=== PATIENT | male | born 1950 | race Two or more races ===

== ENCOUNTER → 2016-03-17 | Outpatient (CLI) | payer BC, OTHER ==
[~2016-03-17] MED LIST: IBUPROPHEN PO; LEVO500T PO; OXYC-208 PO; SENN8.6T7 PO
== END | disposition home or self-care (01) ==
LOC: M WUC 13:14
PROVIDERS: ATTEND Urology
DX: Z85.46 Personal history of malignant neoplasm of prostate (principal)

== ENCOUNTER → 2016-04-26 | Outpatient (REF) | payer OTHER | LOC: M LAB REF 11:16 | PROVIDERS: ATTEND Ophthalmology | DX: L82.1 Other seborrheic keratosis (principal) ==

== ENCOUNTER → 2016-10-06 | Outpatient (CLI) | payer MEDICARE, OTHER | LOC: M WUC 08:17 | PROVIDERS: ATTEND Urology | DX: Z85.46 Personal history of malignant neoplasm of prostate (principal) ==

== ENCOUNTER → 2016-10-15 | Outpatient (CLI) | payer MEDICARE ==
[2016-10-15 09:36] LABS: MEAN CORPUSCULAR VOLUME 84.7 fl (80.0-96.0); RED CELL DISTRIBUTION WIDTH 13.9 % (11.5-14.5)
[2016-10-15 09:40] LABS: MEAN CORPUSCULAR HGB CONC 36.3 g/dl (32.0-36.5)
[2016-10-15 09:49] LABS: ANION GAP 9 MEQ/L (8-16); BLOOD UREA NITROGEN 19 MG/DL (7-18); CALCIUM LEVEL 8.7 MG/DL (8.8-10.2); CARBON DIOXIDE LEVEL 26 MEQ/L (21-32); CHLORIDE LEVEL 108 MEQ/L (98-107); CREATININE FOR GFR 0.89 MG/DL (0.70-1.30); GLOMERULAR FILTRATION RATE > 60.0 (>49); GLUCOSE, FASTING 95 MG/DL (80-110); POTASSIUM SERUM 4.4 MEQ/L (3.5-5.1); SODIUM LEVEL 143 MEQ/L (136-145)
== END ==
LOC: M WUC 08:03
PROVIDERS: ATTEND Urology
DX: Z85.46 Personal history of malignant neoplasm of prostate (principal); Z90.6 Acquired absence of other parts of urinary tract

== ENCOUNTER → 2016-10-21 | Outpatient (CLI) | payer MEDICARE, BC ==
--- NOTE | 2016-10-21 12:59 | REP ---
WHOLE BODY RADIONUCLIDE BONE SCAN: HISTORY: Prostate carcinoma. COMPARISON STUDY: May 03, 2012. TECHNIQUE: 22.0 mCi of technetium 99m MDP is injected and standard whole body bone scan imaging is acquired. SCINTIGRAPHIC FINDINGS: There is a normal distribution of skeletal tracer with uptake in bilateral kidneys and in the urinary bladder. There is no evidence to suggest skeletal metastasis. IMPRESSION: Negative radionuclide bone scan. Signed by aTrik Black MD 10/21/2016 02:39 P
== END ==
LOC: M RAD 09:08
PROVIDERS: ATTEND Urology
DX: Z85.46 Personal history of malignant neoplasm of prostate (principal); Z90.6 Acquired absence of other parts of urinary tract
CPT/HCPCS: 78306; A9503

== ENCOUNTER → 2016-10-22 | Outpatient (CLI) | payer MEDICARE, BC ==
[~2016-10-22] MED LIST changes: +ISOVUE-370 76% 100ML VIAL (Q9967) As Ordered ONE
--- NOTE | 2016-10-22 15:11 | REP ---
Clinical: Prostate cancer for reevaluation. Technique: Axial contrast enhanced images from the thoracic inlet to the upper abdomen using 100 ml Isovue 370 intravenous contrast material with coronal and sagittal re-formations. Comparison: 05/03/2012. Findings: Lung faustin demonstrate chronic age-related changes without acute consolidation, nodule or mass lesion. No pleural effusion/reaction or pneumothorax. Tracheobronchial tree is patent. No axillary, hilar, or mediastinal adenopathy. Mediastinum demonstrates atherosclerotic changes to the coronary arteries without cardiomegaly or pericardial effusion. The thoracic aorta is normal caliber and without aneurysm or dissection. Surrounding musculoskeletal structures demonstrate age-related degenerative change without focal osseous abnormality. Limited upper abdomen demonstrates normal bilateral adrenal glands, cholelithiasis, and 2.1 cm left renal cyst. Impression: 1. Chronic changes as described above without acute mediastinal or pleuroparenchymal process. 2. Upper abdomen demonstrates cholelithiasis and 2.1 cm left renal cyst. 3. The osseous structures demonstrate age-related changes without focal osseous abnormality. Signed by Ed iGbson MD 10/22/2016 03:03 P
--- NOTE | 2016-10-22 19:56 | REP ---
CT abdomen and pelvis without and with IV contrast: History: Prostate carcinoma. Comparison study: June 11, 2014. CT contrast dose: 100 ml of Isovue [address] findings: Preliminary digital ceo ziff davis radiograph demonstrates an unremarkable bowel gas pattern. There are clips in the left upper quadrant. There are multiple calcified gallstones in the gallbladder. No focal hepatic lesion is seen on pre- or postcontrast images. Spleen is unremarkable. No adrenal lesion is observed on either side. The pancreas is unremarkable. There is a cyst in the posterior cortex of the left mid kidney measuring 2.1 cm in greatest diameter. This is unchanged. No retroperitoneal mass or adenopathy is observed. Normal caliber aorta is seen. A normal appendix is noted in the right lower quadrant on pelvic images. There is left colonic diverticulosis without CT evidence of diverticulitis. The prostate is surgically resected. Urinary bladder is unremarkable. No pelvic adenopathy is appreciated. Bone window setting show no lytic or sclerotic bony destructive lesion. On delayed postcontrast images there are tiny cortical cysts in both kidneys in addition to the larger cyst. Impression: No evidence of abdominal or pelvic mass or metastatic disease. Cholelithiasis. Renal cysts. Left colonic diverticulosis. Signed by Tarik Black MD 10/26/2016 08:18 A
== END ==
LOC: M RAD 14:09
PROVIDERS: ATTEND Urology
DX: Z85.46 Personal history of malignant neoplasm of prostate (principal); Z90.6 Acquired absence of other parts of urinary tract; N28.1 Cyst of kidney, acquired; N20.0 Calculus of kidney; K57.30 Diverticulosis of large intestine without perforation or abscess without bleeding
CPT/HCPCS: 71260; 74178; Q9967

== ENCOUNTER → 2017-02-24 | Outpatient (CLI) | payer MEDICARE, OTHER | LOC: M WUC 09:46 | DX: M25.561 Pain in right knee (principal) | CPT/HCPCS: 73564 ==

== ENCOUNTER → 2017-04-20 | Outpatient (CLI) | payer MEDICARE, BC, OTHER ==
[2017-04-20 09:30] LABS: PROSTATIC SPECIFIC AG MONITOR 0.35 NG/ML (< 4.0)
== END ==
LOC: M WUC 08:14
DX: Z85.46 Personal history of malignant neoplasm of prostate (principal)
CPT/HCPCS: 84153

== ENCOUNTER → 2017-10-18 | Outpatient (CLI) | payer MEDICARE, BC, OTHER ==
[2017-10-18 09:32] LABS: PROSTATIC SPECIFIC AG MONITOR 0.52 NG/ML (< 4.0)
== END ==
LOC: M WUC 08:03
DX: Z85.46 Personal history of malignant neoplasm of prostate (principal)
CPT/HCPCS: 84153

== ENCOUNTER → 2017-10-26 | Outpatient (CLI) | payer MEDICARE, BC, OTHER ==
[2017-10-26 14:15] LABS: ALBUMIN 4.1 GM/DL (3.2-5.2); ALBUMIN/GLOBULIN RATIO 1.41 (1.00-1.93); ALKALINE PHOSPHATASE 68 U/L (45-117); ALT/SGPT 23 U/L (12-78); ANION GAP 9 MEQ/L (8-16); AST/SGOT 14 U/L (7-37); BILIRUBIN,TOTAL 3.9 MG/DL (0.2-1.0); BLOOD UREA NITROGEN 16 MG/DL (7-18); CALCIUM LEVEL 8.9 MG/DL (8.8-10.2); CARBON DIOXIDE LEVEL 27 MEQ/L (21-32); CHLORIDE LEVEL 106 MEQ/L (98-107); CREATININE FOR GFR 0.96 MG/DL (0.70-1.30); GLOMERULAR FILTRATION RATE > 60.0 (>49); GLUCOSE, FASTING 97 MG/DL (70-100); POTASSIUM SERUM 4.4 MEQ/L (3.5-5.1); SODIUM LEVEL 142 MEQ/L (136-145)
== END ==
LOC: M SMT 11:09
DX: Z85.46 Personal history of malignant neoplasm of prostate (principal)
CPT/HCPCS: 80053

== ENCOUNTER → 2017-11-03 | Outpatient (CLI) | payer MEDICARE, BC, OTHER ==
[~2017-11-03] MED LIST changes: -IBUPROPHEN PO; +ISOVUE-370 76% 100ML VIAL (Q9967) As Ordered; -ISOVUE-370 76% 100ML VIAL (Q9967) As Ordered ONE; -LEVO500T PO; -OXYC-208 PO; -SENN8.6T7 PO
== END ==
LOC: M RAD 09:10
DX: Z85.46 Personal history of malignant neoplasm of prostate (principal)
CPT/HCPCS: Q9967

== ENCOUNTER → 2018-06-29 | Outpatient (CLI) | payer MEDICARE, BC, OTHER ==
[~2018-06-29] MED LIST changes: +IBUPROPHEN PO; -ISOVUE-370 76% 100ML VIAL (Q9967) As Ordered; +LEVO500T PO; +OXYC-208 PO; +SENN8.6T7 PO
--- NOTE | 2018-06-29 16:01 | REP ---
CT brain without contrast: History: Contusion. Zygomatic fracture. 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 Bony calvarium is intact. There is no evidence of skull fracture. Visualized paranasal sinuses are clear. No intraorbital abnormality is appreciated. There is no evidence of intracranial hemorrhage. No mass, infarct, extra-axial fluid collection or midline shift is seen. There is minimal generalized volume loss. Impression: No skull fracture or intracranial injury. Electronically Signed by Tarik Black MD 06/29/2018 04:08 P
== END ==
LOC: M RAD 15:08
PROVIDERS: ATTEND Physician Assistant
DX: S02.40EA Zygomatic fracture, right side, initial encounter for closed fracture (principal); S00.83XA Contusion of other part of head, initial encounter; X58.XXXA Exposure to other specified factors, initial encounter; Y92.9 Unspecified place or not applicable

== ENCOUNTER → 2018-06-29 | Outpatient (CLI) | payer MEDICARE, BC, OTHER ==
--- NOTE | 2018-06-29 15:25 | REP ---
Facial bone series: Five views. History: Contusion. Findings: Multiple views of the facial bones demonstrate intact orbital and paranasal sinus margins. There is a depressed fracture of the zygomatic arch on the right with overlying soft tissue swelling. The left zygomatic arch appears intact. No mandibular fracture is appreciated. Study is otherwise unremarkable. Impression: Depressed slightly comminuted fracture of the zygomatic arch on the right side with overlying soft tissue swelling. Electronically Signed by Tarik Black MD 06/29/2018 04:07 P
== END ==
LOC: M WUC 14:22
PROVIDERS: ATTEND Physician Assistant
DX: S02.40EA Zygomatic fracture, right side, initial encounter for closed fracture (principal); S00.83XA Contusion of other part of head, initial encounter; X58.XXXA Exposure to other specified factors, initial encounter; Y92.9 Unspecified place or not applicable

== ENCOUNTER → 2018-11-09 | Outpatient (CLI) | payer MEDICARE, BC, OTHER | LOC: M WUC 08:20 | PROVIDERS: ATTEND Urology | DX: Z85.46 Personal history of malignant neoplasm of prostate (principal) ==

== ENCOUNTER → 2018-11-21 | Outpatient (CLI) | payer MEDICARE, BC, OTHER ==
--- NOTE | 2018-11-22 06:29 | RADONC ---
RADIATION ONCOLOGY CONSULTATION NOTE DATE: 11/21/2018 CHART #: [id number] DIAGNOSIS: Prostate cancer. STAGE: Stage II C, [id number], [place] score 8 (4-4), grade group IV, PSA initially 4.7. ECOG PERFORMANCE STATUS: 0. CONSULTATION NOTE: Mr. Rangel is a very pleasant 68-year-old white male with the diagnosis of a stage II C, [id number], poorly differentiated [place] score 8 (4-4), adenocarcinoma of the prostate, grade group IV, with an initial PSA of 4.7 who is presenting to us today status post robotic-assisted laparoscopic radical prostatectomy and bilateral pelvic lymph node dissection for consideration of postoperative radiation therapy following biochemical failure. HISTORY OF PRESENT ILLNESS: The patient was followed closely and a routine PSA was done on 04/05/2012 which was found to be 4.7. On 04/21/2012, the patient underwent prostatic needle biopsy and pathology revealed a [place] score 8 (4-4) adenocarcinoma involving the right side of his prostate. On 05/09/2012, the patient underwent a robotic-assisted laparoscopic radical prostatectomy and bilateral pelvic lymph node dissection. Pathology confirmed a Venkatesh score 8 (4-4) adenocarcinoma involving the right lobe only. There was no extraprostatic capsular extension noted. The seminal vesicles were negative for invasion. All inked surgical margins on the right as well as the left were negative for malignancy. There was noted to be some microscopic foci of perineural invasion noted in the periphery on the right side. A right external iliac node as well as a left external iliac nodes were sampled and were negative for metastatic disease. The patient has been followed since surgery and his PSA has been slowly rising. On 04/20/2017, it had risen to 0.35. On 10/18/2017, the PSA had risen to 0.52 and on 11/09/2018 it appears the PSA has now risen to 0.88. 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 PAST MEDICAL HISTORY: The patient's past medical history is positive for an esophageal repair in 2004. He has been in otherwise good health. ALLERGIES: The patient has NO KNOWN DRUG ALLERGIES. SOCIAL HISTORY: The patient does not smoke cigarettes. He drinks alcohol socially. FAMILY HISTORY: The patient's family history is positive for a father with lung cancer. REVIEW OF SYSTEMS: The patient's review of systems is noncontributory. Denies nausea, vomiting, fevers, chills, night sweats, diplopia, headaches, anxiety or depression, anorexia, weight loss, visual disturbances, chest pain, urinary or bowel difficulties, bone pain, or neurological problems. PHYSICAL EXAMINATION: The patient is a well-developed, well-nourished male in no acute distress. HEENT exam is normocephalic, atraumatic. Extraocular movements are intact. There is no palpable cervical, supraclavicular, infraclavicular, axillary, or inguinal lymphadenopathy present. Lungs are clear to auscultation and percussion. Heart has a regular rate and rhythm. Abdomen is benign with no hepatosplenomegaly, masses, or tenderness. Rectal examination reveals a normal anal sphincter tone. His prostate bed is smooth with no evidence of nodularity. Skeletal examination reveals no tenderness to pressure or percussion of the bony skeleton. Extremities reveal no clubbing, cyanosis, or edema. Neurologic exam is grossly intact, as is the remainder of the physical examination. ASSESSMENT: Clearly, the patient is a candidate for external beam radiation therapy and I have so informed him. I have discussed with the patient in detail the potential benefits as well as possible acute and chronic sequelae of external beam radiation therapy. We have discussed logistics of treatment planning, simulation and subsequent fractionated daily radiation treatments. I have scheduled the patient for the next available simulation slot and radiation treatments will follow. Thank you for allowing us to participate in the care of this very pleasant gentleman. If I could be of any further assistance or provide you any information, please feel free to contact me at anytime. As always warm regards. cc: MD Rei Gibson MD
== END ==
LOC: M ONCR 08:46
PROVIDERS: ATTEND Radiology Radiation Oncology
DX: C61 Malignant neoplasm of prostate (principal)

== ENCOUNTER → 2018-12-21 | Outpatient (RCR) | payer MEDICARE, BC, OTHER ==
[2018-11-23 10:58] LABS: HEMATOCRIT 43.5 % (42.0-52.0); HEMOGLOBIN 15.4 g/dl (13.5-17.5); LYMPH % 23.9 % (24.0-44.0); MEAN CORPUSCULAR HEMOGLOBIN 31.2 pg (27.0-33.0); MEAN CORPUSCULAR HGB CONC 35.4 g/dl (32.0-36.5); NEUTROPHILS # 4.4 10^3/uL (1.8-7.7); NEUTROPHILS % 66.8 % (36.0-66.0); RED BLOOD COUNT 4.94 10^6/uL (4.30-6.10); WHITE BLOOD COUNT 6.6 10^3/uL (4.0-10.0)
--- NOTE | 2018-11-23 20:29 | RADONC ---
RADIATION ONCOLOGY SIMULATION NOTE DATE: 11/23/2018 CHART NUMBER: [id number] Mr. Rangel was taken to the CT scan for CT simulation of his prostate bed field. CT was accomplished without difficulty or discomfort. Radiation treatment planning is underway and radiation treatments will begin subsequently. An immobilization device was created and will be used throughout the course of treatment. It was created without difficulty or discomfort. I was physically present throughout the course of CT simulation.
--- NOTE | 2018-12-04 13:53 | RADONC ---
RADIATION ONCOLOGY PROGRESS NOTE DATE: 12/04/2018 CHART NUMBER: [id number] Mr. Rangel is presently at a dose of 720 cGy to his prostate bed and is tolerating treatments quite well at this point with no complaints related to his radiation therapy. He is having no urinary or bowel difficulties and no bone pain. The patient's review of systems is noncontributory. He denies nausea, vomiting, fevers, chills, night sweats, diplopia, headaches, anxiety or depression, anorexia, weight loss, visual disturbances, chest pain, urinary or bowel difficulties, bone pain, or neurological problems. PHYSICAL EXAMINATION: The patient's skin is in good condition with no evidence of radiation change present. There is no moist or dry desquamation. The remainder of his physical examination remains unchanged. Mr. Rangel is tolerating treatments quite well and radiation will continue as scheduled.
--- NOTE | 2018-12-12 07:04 | RADONC ---
RADIATION ONCOLOGY PROGRESS NOTE DATE: 12/11/2018 CHART #: [id number] DIAGNOSIS: Adenocarcinoma of the prostate. STAGE: II C, [id number]. Mr. Rangel with a diagnosis of adenocarcinoma of the prostate with local regional radiotherapy and his dose to date is 1620 cGy of a proposed 4500 cGy and reevaluate. He appears to be tolerating his radiotherapy reasonably well. REVIEW OF SYSTEMS: Denying any nausea, vomiting, diarrhea, dysuria, hematuria or blood per rectum. His energy level is such that he is able to maintain most day-to-day activities without any alteration of his lifestyle. Skin irritation is denied. The remainder of the review of systems is unchanged. PHYSICAL EXAMINATION There is no evidence of erythema and certainly no focal desquamation. Lymphatics: No palpable peripheral lymphadenopathy is appreciated in the cervical, supraclavicular, axillary or inguinal lymph node chains. Lungs are clear. Heart regular. Abdomen without evidence of hepatomegaly, masses or deep abdominal tenderness. The remainder of the physical examination is unchanged. IMPRESSION: Tolerating therapy well. PLAN: Planned treatments to continue. MTDD
--- NOTE | 2018-12-18 09:45 | RADONC ---
RADIATION ONCOLOGY PROGRESS NOTE DATE: 12/18/2018 CHART #: [id number] Mr. Rangel is presently at a dose of 2520 cGy to his prostate bed and is tolerating treatments quite well at this point with no significant complaints related to his radiation therapy. He is having no urinary problems. He is complaining of hemorrhoidal pain. He is also having some blood with defecation. REVIEW OF SYSTEMS: The patient's review of systems is noncontributory. Denies nausea, vomiting, fevers, chills, night sweats, diplopia, headaches, anxiety or depression, anorexia, weight loss, visual disturbances, chest pain, urinary or bowel difficulties, bone pain, or neurological problems. PHYSICAL EXAMINATION: The patient's skin is in good condition with no evidence of moist or dry desquamation. The remainder of his physical exam remains unchanged. Mr. Rangel is tolerating his treatments fairly well, although he is complaining of hemorrhoid discomfort. We have given him instructions with regards to his perianal care and radiation will continue as scheduled.
== END ==
LOC: M ONCR 11-23 10:10
PROVIDERS: ATTEND Radiology Radiation Oncology
DX: C61 Malignant neoplasm of prostate (principal)

== ENCOUNTER 2019-01-17 08:18 | Outpatient (RCR) | payer MEDICARE, BC, OTHER ==
--- NOTE | 2018-12-25 13:36 | RADONC ---
RADIATION ONCOLOGY DATE OF SERVICE: 12/25/2018 He has a diagnosis of prostate cancer. His chart number is [id number]. Mr. Rangel with the diagnosis of prostate cancer is currently receiving local regional radiotherapy for definitive control. His dose to date is 3600 cGy, and treatments are going relatively well with the exception of rectal irritation and pain secondary to hemorrhoidal irritation. REVIEW OF SYSTEMS: He denies any nausea, vomiting, diarrhea, dysuria, hematuria, or blood per rectum. However, he does have a consistent pain in the rectum secondary to inflamed hemorrhoids. His energy level is such that he is able to maintain most day-to-day activities without any alteration of his lifestyle. Skin irritation is denied. The remainder of the review of systems is noncontributory. EXAMINATION AND FINDINGS: The skin within the irradiated volume shows neither erythema nor desquamation. Lymphatics: No palpable peripheral lymphadenopathy is appreciated. Lungs are clear. The remainder of the physical examination is unchanged. IMPRESSION: Tolerating therapy reasonably well with minor to moderate symptoms secondary to his hemorrhoidal inflammation. PLAN: We will call in a prescription for Anusol-HC suppositories or cream to be applied twice daily. MTDD
--- NOTE | 2019-01-01 10:08 | RADONC ---
RADIATION ONCOLOGY PROGRESS NOTE DATE: 01/01/2019 CHART NUMBER: [id number] Mr. Rangel is presently at a dose of 4320 cGy to his prostate bed and is complaining at this time of severe discomfort and pain secondary to his hemorrhoids. The patient reports that he had been told by his physicians in the past that he needed to address his hemorrhoid problem which has caused him a great deal of difficulty. REVIEW OF SYSTEMS: The patient's review of systems is positive for significant discomfort upon defecation, but is otherwise noncontributory. He denies nausea, vomiting, fevers, chills, night sweats, diplopia, headaches, anxiety or depression, anorexia, weight loss, visual disturbances, chest pain, urinary or bowel difficulties, bone pain or neurological problems. PHYSICAL EXAMINATION: The patient's skin is in good condition with no evidence of radiation change present. There is no moist or dry desquamation. The remainder of his physical exam remains unchanged. I had a very lengthy discussion with this patient with regards to his symptoms. At this point I have recommended that he take at least this week off and let things calm down. He will continue with his Anusol and I have given him some other recommendations. I have requested that he consider taking periodic Fleet enemas which may assist him in allowing him to avoid strain upon defecation. If he did this periodically he may be able to relieve some pressure. Once again in summary, the patient will be on rest for the next week and we will continue to follow him closely. I did discuss the possibility of some pain medication but I think this may only cause increased likelihood of having constipation thereby worsening his overall symptoms. EDUARD
--- NOTE | 2019-01-09 09:11 | RADONC ---
RADIATION ONCOLOGY PROGRESS NOTE DATE: 01/08/2019 CHART NUMBER: [id number] PROGRESS NOTE: Mr Rangel is presently at a dose of 4500 cGy to his prostate bed and is tolerating treatments quite well at this point with no significant difficulties related to his radiation therapy. He has been off secondary to hemorrhoid pain. He reports that his hemorrhoids are now significantly better. He reports that he is having just minimal discomfort and wishes to restart treatment. REVIEW OF SYSTEMS: The patient's review of systems is generally at this time noncontributory. Denies nausea, vomiting, fevers, chills, night sweats, diplopia, headaches, anxiety or depression, anorexia, weight loss, visual disturbances, chest pain, urinary or bowel difficulties, bone pain, or neurological problems. PHYSICAL EXAMINATION: The patient's skin is in good condition with no evidence of radiation change present. There is no moist or dry desquamation. The remainder of his physical exam remains unchanged. Mr. Rangel is tolerating treatments well at this point and radiation will continue as scheduled.
--- NOTE | 2019-01-17 06:54 | RADONC ---
RADIATION ONCOLOGY PROGRESS NOTE DATE: 01/15/2019 CHART NUMBER: [id number] Mr. Rangel is presently a dose of 5400 cGy to his prostate bed and is tolerating treatments quite well at this point with no complaints related to his radiation therapy. He is having no urinary or bowel difficulties and no bone pain. REVIEW OF SYSTEMS: The patient's review of systems is noncontributory. He denies nausea, vomiting, fevers, chills, night sweats, diplopia, headaches, anxiety or depression, anorexia, weight loss, visual disturbances, chest pain, urinary or bowel difficulties, bone pain or neurological problems. PHYSICAL EXAMINATION: The patient's skin is in good condition with no evidence of radiation change present. There is no moist or dry desquamation. The remainder of his physical exam remains unchanged. Mr. Rangel is tolerating treatments quite well and radiation will continue as scheduled.
[~2019-01-17 08:18] MED LIST changes: +ANUS2.5C2 TOP
== END 2019-01-20 ==
LOC: M ONCR 08:18
PROVIDERS: ATTEND Radiology Radiation Oncology
DX: C61 Malignant neoplasm of prostate (principal)

== ENCOUNTER 2019-01-26 08:23 | Outpatient (RCR) | payer MEDICARE, BC, OTHER ==
--- NOTE | 2019-01-23 10:11 | RADONC ---
RADIATION ONCOLOGY CLINIC NOTE DATE OF SERVICE: 01/23/2019 CHART #: [id number] Mr. Rangel is a 68-year-old gentleman who carries a diagnosis of prostate CA. He is receiving radiation therapy to his prostatic bed. Currently, he has received a dose of 6660 cGy in 180 cGy daily fraction fractions. He has no complaints. He denies any nausea, vomiting or bowel problems. Nocturia once. Denies dysuria or hematuria. He said he has some hemorrhoids, which I recommended sitz baths and apply hydrocortisone cream or suppositories. Recommend continuous treatment as scheduled. MTDD
--- NOTE | 2019-01-29 13:15 | RADONC ---
RADIATION ONCOLOGY TREATMENT SUMMARY DATE: 01/29/2019 CHART #: [id number] DIAGNOSIS: Prostate cancer. Stage: II C, [id number], [place] score 8 (4-4) grade group IV, PSA initially 4.7 TREATMENT SUMMARY: Mr. Rangel is a very pleasant 68-year-old white male with the diagnosis of a stage II C, [id number], poorly differentiated, Venkatesh score 8 (4-4) adenocarcinoma of prostate, grade group IV, with an initial PSA of 4.7 who presented to us status post robotic-assisted laparoscopic radical prostatectomy and bilateral pelvic lymph node dissection for consideration of postoperative radiation therapy following biochemical failure. We treated the patient to his prostate bed for a dose of 6660 cGy delivered in 37 fractions of 180 cGy each over 57 elapsed days from 11/29/2018 through 01/26/2019. The patient's prostate bed was treated on a linear accelerator utilizing a 15 MV photon beam via 3-D conformal technique with anterior, posterior, left and right lateral faustin. We initially treated a larger field to a dose of 4500 cGy and subsequently coned down to deliver the remaining 2160 cGy in order to maintain the small bowel and other structures within their tolerance limits. Mr. Rangel tolerated his treatments quite well and was able complete therapy as prescribed. I have scheduled the patient to see me again in 1 month for further followup. He will also continue to be followed by his other physicians as well. cc: MD Rei Gibson MD
== END 2019-02-20 ==
LOC: M ONCR 08:23
PROVIDERS: ATTEND Radiology Radiation Oncology
DX: C61 Malignant neoplasm of prostate (principal)

== ENCOUNTER → 2019-02-13 | Outpatient (CLI) | payer MEDICARE, BC, OTHER ==
[2019-02-17 15:20] LABS: Lyme Disease IgG Ab 18 kDa Ban Present (.); Lyme Disease IgG Ab 23 kDa Ban Absent (.); Lyme Disease IgG Ab 28 kDa Ban Present (.); Lyme Disease IgG Ab 30 kDa Ban Present (.); Lyme Disease IgG Ab 39 kDa Ban Present (.); Lyme Disease IgG Ab 41 kDa Ban Present (.); Lyme Disease IgG Ab 45 kDa Ban Absent (.); Lyme Disease IgG Ab 58 kDa Ban Present (.); Lyme Disease IgG Ab 66 kDa Ban Absent (.); Lyme Disease IgG Ab 93 kDa Ban Present (.); Lyme Disease IgG West Blot Int Positive (.); Lyme Disease IgG/IgM Antibodie 2.78 ISR (0.00-0.90); Lyme Disease IgM Ab 23 kDa Ban Absent (.); Lyme Disease IgM Ab 39 kDa Ban Absent (.); Lyme Disease IgM Ab 41 kDa Ban Absent (.); Lyme Disease IgM Ab Quantitati <0.80 index (0.00-0.79); Lyme Disease IgM West Blot Int Negative (.)
== END ==
LOC: M WUC 10:29
PROVIDERS: ATTEND Internal Medicine
DX: Z11.9 Encounter for screening for infectious and parasitic diseases, unspecified (principal); W57.XXXA Bitten or stung by nonvenomous insect and other nonvenomous arthropods, initial encounter

== ENCOUNTER → 2019-02-23 | Outpatient (CLI) | payer MEDICARE, BC, OTHER | LOC: M WUC 16:10 | PROVIDERS: ATTEND Radiology Radiation Oncology | DX: C61 Malignant neoplasm of prostate (principal) ==

== ENCOUNTER → 2019-02-28 | Outpatient (CLI) | payer MEDICARE, BC, OTHER ==
--- NOTE | 2019-03-01 11:45 | RADONC ---
RADIATION ONCOLOGY FOLLOWUP NOTE DATE: 02/28/2019 CHART #: [id number] DIAGNOSIS: Prostate cancer. STAGE: II C, [id number], Venkatesh score 8 (4-4), grade group 4, PSA initially 4.7. ECOG PERFORMANCE STATUS: 0. FOLLOWUP NOTE: Mr. Rangel is a very pleasant 68-year-old white male with the diagnosis of what appears to be a stage II C, [id number], poorly differentiated Venkatesh score 8 (4-4) adenocarcinoma of the prostate, grade group 4 with an initial PSA of 4.7 who presented to us status post robotic-assisted laparoscopic radical prostatectomy and bilateral pelvic lymph node dissection for consideration of postoperative radiation therapy following biochemical failure. He is now presenting for routine followup visit 1 month post completion of external beam radiation therapy. The patient presents today reporting that generally he is doing quite well. His bowel difficulties have improved significantly and is using ProctoFoam. His side effects peaked 2 weeks after completion of treatment as anticipated and are now resolving. REVIEW OF SYSTEMS: The patient's review of systems is positive for some slight residual discomfort, but is otherwise noncontributory. Denies nausea, vomiting, fevers, chills, night sweats, diplopia, headaches, anxiety or depression, anorexia, weight loss, visual disturbances, chest pain, urinary or bowel difficulties, bone pain, or neurological problems. PHYSICAL EXAMINATION: The patient is a well-developed, well-nourished male in no acute distress. HEENT exam is normocephalic, atraumatic. Extraocular movements are intact. There is no palpable cervical, supraclavicular, infraclavicular, axillary, or inguinal lymphadenopathy present. Lungs are clear to auscultation and percussion. Heart has a regular rate and rhythm. Abdomen is benign with no hepatosplenomegaly, masses, or tenderness. Rectal examination was refused at this point. Skeletal examination reveals no tenderness to pressure or percussion of the bony skeleton. Extremities reveal no clubbing, cyanosis, or edema. Neurologic exam is grossly intact, as is the remainder of the physical examination. ASSESSMENT: The patient is clinically doing quite well at this point. I have scheduled him to see me again in 6 months for further followup. He will also continue to be followed by his other physicians as well. cc: MD Rei Gibson MD
== END ==
LOC: M ONCR 10:28
PROVIDERS: ATTEND Radiology Radiation Oncology
DX: C61 Malignant neoplasm of prostate (principal)

== ENCOUNTER → 2019-05-28 | Outpatient (CLI) | payer MEDICARE, BC, OTHER | LOC: M WUC 10:55 | PROVIDERS: ATTEND Radiology Radiation Oncology | DX: C61 Malignant neoplasm of prostate (principal) ==

== ENCOUNTER → 2019-06-06 | Outpatient (CLI) | payer MEDICARE, BC, OTHER ==
--- NOTE | 2019-06-06 09:41 | RADONC ---
RADIATION ONCOLOGY TELEPHONE FOLLOWUP NOTE DATE: 06/06/2019 This is a telemedicine visit. The patient was informed of the risks including security breech, technological failure, inability to perform a comprehensive physical exam which could delay or prevent an accurate diagnosis, and potential complications from treatment decisions rendered over a telemedicine platform. The patient understands and consented to the use of telehealth services phone only. CHART NUMBER: [id number] DIAGNOSIS: Prostate cancer. STAGE: IIC, G2sH3W5, Venkatesh score 8 (4-4), grade group 4, PSA initially 4.7. ECOG PERFORMANCE STATUS: 0 FOLLOWUP NOTE: Mr. Rangel is a very pleasant 68-year-old white male with the diagnosis of a Stage IIC, [id number], poorly differentiated Lockhart score 8 (4-4) adenocarcinoma of the prostate, grade group 4, with an initial PSA level of 4.7 who is presenting to us today for a routine followup visit 4 months post completion of external beam radiation therapy. The patient presents today reporting that he is doing quite well with no complaints at this time related to his radiation therapy or disease. He is having no urinary or bowel difficulties and no bone pain. REVIEW OF SYSTEMS: The patient's review of systems is noncontributory. He denies nausea, vomiting, fevers, chills, night sweats, diplopia, headaches, anxiety or depression, anorexia, weight loss, visual disturbances, chest pain, urinary or bowel difficulties, bone pain or neurological problems. PHYSICAL EXAMINATION: Physical examination was deferred at this time as this was a telephone consult as per COVID-19 precautions. ASSESSMENT: The patient is clinically doing quite well. A PSA level done on 05/28/2019 was less than 0.01. The patient was seen by his urologist, Dr. Kingston Jo last week and is scheduled for routine followup in his office as well. In light of this, I have discharged the patient from our followup except on a as needed basis. cc: MD Rei Gibson MD
== END ==
LOC: M ONCR 09:25
PROVIDERS: ATTEND Radiology Radiation Oncology
DX: C61 Malignant neoplasm of prostate (principal); Z92.3 Personal history of irradiation

== ENCOUNTER 2019-06-11 16:54 | Emergency (ER) | payer MEDICARE, BC, OTHER ==
[~2019-06-11] VITALS: Ht 175.3 cm; Wt 88.8 kg
[2019-06-11] MEDS ORDERED: BOOSTRIX/ADACEL VACCINE (DIPHTH/PERTUSS/ACELL/TETANUS) 0.5ML SYR IM ONE (17:15)
[2019-06-11] MEDS ORDERED: NS 1,000 ML IV ONE (17:15)
[2019-06-11 17:27] LABS: BASO # 0.1 10^3/uL (0.0-0.2); BASO % 0.8 % (0.0-1.0); EOS # 0.1 10^3/uL (0.0-0.5); EOS % 1.6 % (0.0-3.0); HEMATOCRIT 42.9 % (42.0-52.0); HEMOGLOBIN 15.5 g/dl (13.5-17.5); LYMPH # 1.7 10^3/uL (1.5-5.0); LYMPH % 18.9 % (24.0-44.0); MEAN CORPUSCULAR HEMOGLOBIN 30.7 pg (27.0-33.0); MEAN CORPUSCULAR HGB CONC 36.1 g/dl (32.0-36.5); MONO # 0.7 10^3/uL (0.0-0.8); MONO % 8.2 % (0.0-5.0); NEUTROPHILS # 5.9 10^3/uL (1.5-8.5); NEUTROPHILS % 66.5 % (36.0-66.0); PLATELET COUNT, AUTOMATED 237 10^3/uL (150-450); RED BLOOD COUNT 5.05 10^6/uL (4.30-6.10); WHITE BLOOD COUNT 8.8 10^3/uL (4.0-10.0)
--- NOTE | 2019-06-11 17:36 | REPVR ---
PROCEDURE INFORMATION: Exam: CT Head Without Contrast Exam date and time: 06/11/2019 5:22 PM Age: 68 years old Clinical indication: Injury or trauma; Fall; Initial encounter; Blunt trauma (contusions or hematomas) TECHNIQUE: Imaging protocol: Computed tomography of the head without contrast. Axial and coronal reformatted images were created and reviewed. Radiation optimization: All CT scans at this facility use at least one of these dose optimization techniques: automated exposure control; mA and/or kV adjustment per patient size (includes targeted exams where dose is matched to clinical indication); or iterative reconstruction. COMPARISON: CT Head without contrast 06/29/2018 3:36 PM FINDINGS: Brain: Subtle left frontal and right parietal subarachnoid blood products. Patchy areas of hypoattenuation in the periventricular and subcortical white matter, consistent with chronic small vessel ischemic disease. No CT evidence of acute territorial infarction. No significant mass effect or midline shift. Basal cisterns patent. Ventricles: Prominence of the cortical sulci, cisterns and ventricular system, consistent with cerebral and cerebellar volume loss. Bones/joints: No acute osseous abnormality. Sinuses: Small amount of dependent fluid and/or blood products in the right maxillary and right sphenoid sinuses. Minimal ethmoid mucosal thickening. Mastoid air cells: Grossly unremarkable. Soft tissues: Mild right periorbital soft tissue swelling. IMPRESSION: 1. Subtle left frontal and right parietal subarachnoid blood products. 2. Additional findings, as above. Electronically signed by: Gaurang Barajas On 06/11/2019 17:36:18 PM
--- NOTE | 2019-06-11 17:41 | REPVR ---
PROCEDURE INFORMATION: Exam: CT Maxillofacial Without Contrast Exam date and time: 06/11/2019 5:22 PM Age: 68 years old Clinical indication: Injury or trauma; Fall; Initial encounter; Blunt trauma (contusions or hematomas); Orbit/periorbital; Right TECHNIQUE: Imaging protocol: Computed tomography images of the face without contrast. Axial, coronal and sagittal reformatted images were created and reviewed. Radiation optimization: All CT scans at this facility use at least one of these dose optimization techniques: automated exposure control; mA and/or kV adjustment per patient size (includes targeted exams where dose is matched to clinical indication); or iterative reconstruction. COMPARISON: CR FACIAL BONES COMPLETE 06/29/2018 2:33 PM FINDINGS: Orbits: No acute intraorbital abnormality. Globes intact. Bones/joints: No acute fracture. Sinuses: Small amount of dependent fluid and/or blood products in the right maxillary and right sphenoid sinuses. Minimal ethmoid and left maxillary sinus mucosal thickening. Soft tissues: Unremarkable. IMPRESSION: 1. No acute facial bone fracture. 2. Additional findings, as above. Electronically signed by: Gaurang Barajas On 06/11/2019 17:40:58 PM
--- NOTE | 2019-06-11 17:44 | REPVR ---
PROCEDURE INFORMATION: Exam: CT Cervical Spine Without Contrast Exam date and time: 06/11/2019 5:22 PM Age: 68 years old Clinical indication: Injury or trauma; Fall; Initial encounter; Blunt trauma TECHNIQUE: Imaging protocol: Computed tomography images of the cervical spine without contrast. Axial, coronal and sagittal reformatted images were created and reviewed. Radiation optimization: All CT scans at this facility use at least one of these dose optimization techniques: automated exposure control; mA and/or kV adjustment per patient size (includes targeted exams where dose is matched to clinical indication); or iterative reconstruction. COMPARISON: No relevant prior studies available. FINDINGS: Vertebrae: Osteopenia. Mild reversal of the normal cervical lordosis. Mild anterolisthesis of C2 on C3, C4 on C5 and C7 on T1. Mild retrolisthesis of C3 on C4. Alignment otherwise anatomic. Minimal dextroscoliosis. Congenital nonunion of the C1 posterior arch. No CT evidence of acute fracture, dislocation or subluxation. Vertebral body heights maintained. Discs/Spinal canal/Neural foramina: Multilevel degenerative changes, characterized by disc space narrowing, osteophytosis and uncovertebral and facet joint hypertrophy. Multilevel spinal canal and neural foraminal stenosis. Soft tissues: Grossly unremarkable. Lungs: Mild biapical pleural thickening. IMPRESSION: 1. No CT evidence of acute cervical spine traumatic injury. 2. Additional findings, as above. Electronically signed by: Gaurang Barajas On 06/11/2019 17:44:04 PM
[2019-06-11] MEDS: MORPHINE 2 MG/ML 1ML VIAL (J2270) IV PRN ×4 (17:45→18:48)
[2019-06-11 17:50] LABS: INR 1.09; PROTHROMBIN TIME 13.8 SECONDS (11.8-14.0)
[2019-06-11 17:51] LABS: PARTIAL THROMBOPLASTIN TIME 25.9 SECONDS (25.0-38.4)
[2019-06-11] MEDS ORDERED: LIDOCAINE 1% MDV 20ML VIAL SC ONE (18:00)
[2019-06-11] MEDS ORDERED: LIDOCAINE 1% SDV 30ML VIAL SC SCH (18:00)
[2019-06-11 18:17] LABS: ALT/SGPT 30 U/L (12-78); AMYLASE 50 U/L (25-115); BILIRUBIN,DIRECT 0.5 MG/DL (0.0-0.2); CK-MB VALUE MASS 2.1 NG/ML (<3.6); CPK CREATINE PHOSPHOKINASE 135 U/L (39-308); ETHYL ALCOHOL (ETHANOL) < 0.003 % (0.000-0.010); LIPASE 75 U/L (73-393); MB/CK RELATIVE INDEX 1.56 (< OR =4); TOTAL PROTEIN 7.2 GM/DL (6.4-8.2); TROPONIN I < 0.02 NG/ML (< 0.10)
[2019-06-11] MEDS ORDERED: METAL LOCK LOOP XX ONE (18:20)
--- NOTE | 2019-06-11 19:12 | ECGEPIP ---
[facility] - ED Test Date: 2019-06-11 Pat Name: LILIANA GONZALES Department: Room: - Gender: Male Tick Sewer: [place] : 1950 Requested By: HEATHER Trujillo Order Number: [id number] Reading MD: Patrizia Kay Measurements Intervals [place] Rate: 67 P: 3 DE: 197 QRS: -40 QRSD: 108 T: -7 QT: 399 QTc: 423 Interpretive Statements SINUS RHYTHM BASELINE ARTIFACT LIMITS INTERPRETATION MARKED LEFT AXIS DEVIATION INCOMPLETE RIGHT BUNDLE BRANCH BLOCK NO PRIOR Electronically Signed on 06-11-2019 19:12:11 EDT by Patrizia Kay
[2019-06-11 19:15] VITALS: BP 135/71
--- NOTE | 2019-06-11 19:37 | ER ---
DATE OF CONSULTATION: 06/11/2019 INDICATION: Displaced right both bone forearm fracture. HISTORY OF PRESENT ILLNESS: Gaurang is a 68-year-old itjji-webr-kbtichst gentleman. 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 He had immediate deformity and pain in his wrist. He had a dislocation of his left hand. He was brought into the [facility] where a CT of the head revealed subarachnoid hemorrhage and x-rays of the hand, wrist and forearm revealed a comminuted intra-articular fracture of the distal radius with significant displacement and a segmental ulna fracture, basically midshaft and distal one-fourth fractures. These were closed injuries. The patient denied numbness or tingling in his fingers. For the patient's past medical history, past surgical history, medications, allergies, social history and review of systems, please see the ER intake form. PHYSICAL EXAM: Reveals a middle-aged gentleman who appears to be in pain. He is alert and oriented times three. Neurologic: Appropriate mood, pleasant affect. Cardiovascular: 2+ radial pulse. Pulmonary: Nonlabored breathing. Skin: Skin in the right wrist and forearm is intact without open lesions. Musculoskeletal: There is a hematoma developing at the midshaft ulnar fracture. The forearm itself is soft and compressible. No concern for compartment syndrome. The distal radius had an obvious deformity. He was able to fire [employer], [employer] and IO. Sensation light touch in the fingertips was intact. X-rays of the right wrist/forearm which include the elbow, although no dedicated elbow films, again revealed a minimally displaced distal fourth and midshaft ulnar fracture, so a segmental fracture and a significantly comminuted displaced intra-articular fracture of the distal radius. PLAN: The emergency room (ER) physician was transferring the patient to [facility] for the subarachnoid hemorrhage, and asked for my assistance in splinting the forearm fracture to get the wrist into better position. So I had a conversation with the patient about the risks and benefits of a closed reduction and hematoma block with splinting for his right forearm fracture. Risks and benefits discussed, written informed consent was obtained. I explained to him prereduction that with this degree of displacement and comminution of the radius and having segmental ulna fracture, this is something that typically would receive internal fixation once he is cleared from a neurosurgical standpoint. The patient received 4 mg of morphine. I then injected 8 mL of 1% lidocaine without epinephrine via dorsal approach per hematoma block technique after sterilely prepping the skin with chlorhexidine. After 5 minutes, the medicine was allowed to sit. The patient still had significant pain. I then applied closed reduction exaggerating the deformity at the wrist, applying longitudinal traction, palmar translation and tried to minimize ulnar deviation. Mini C-arm was available, and the patient was then placed into a sugar-tong splint. I applied a mold to the distal radius fracture site. Unfortunately, the midshaft ulnar fracture had increased displacement. I was able to improve the alignment with direct pressure but did not feel comfortable casting the arm with the head bleed. On final C-arm images, there was improved alignment at the distal radius fracture site on AP and lateral views, the wrist was no longer subluxated. There is some increased angulation of the midshaft ulnar fracture. I explained to the patient that this is going to require internal fixation. He could either have it fixed down in [place] or he could see my partner, Dr. Gil Escalrea, to get this fixed. He will have to get clearance from a neurosurgical standpoint with the head bleed on timing of surgery. Again, no clinical concern for compartment syndrome. At this time, final AP/lateral films are pending.
--- NOTE | 2019-06-11 23:46 | REP ---
RIGHT WRIST, FOUR VIEWS: Four views of right wrist performed. There is a comminuted fracture of the distal radius. There is intra-articular extension with the radiocarpal joint. There is moderate dorsal angulation. Also noted is a fracture of distal half of the ulna in two places. There is slight displacement at the more distal fracture site. Electronically Signed by Ian Clifford MD 06/12/2019 04:54 P
--- NOTE | 2019-06-11 23:47 | REP ---
RIGHT FOREARM, THREE VIEWS: Three views of right forearm performed. There is a comminuted intra-articular fracture of the distal radius. There is moderate dorsal angulation. There is a nondisplaced fracture of the midshaft of the ulna. There is a slightly displaced fracture of the distal third of the ulna. Electronically Signed by Ian Clifford MD 06/12/2019 04:54 P
--- NOTE | 2019-06-11 23:49 | REP ---
LEFT HAND, FOUR VIEWS: Four views of left hand performed. There is posterior dislocation at the 3rd proximal interphalangeal joint. There may be a tiny avulsion fracture of the distal aspect of the 3rd proximal phalanx. There is also a tiny calcification adjacent to the 3rd distal interphalangeal joint, which could represent a tiny avulsion fracture. There is no other evidence of acute fracture or dislocation. Electronically Signed by Ian Clifford MD 06/12/2019 04:54 P
--- NOTE | 2019-06-11 23:50 | REP ---
CHEST, TWO VIEWS: There is no evidence of acute infiltrate. No pleural effusion is seen. The heart is normal in size. The mediastinal silhouette is unremarkable. The visualized osseous structures are intact. IMPRESSION: No acute pulmonary disease. Electronically Signed by Ian Clifford MD 06/12/2019 04:54 P
--- NOTE | 2019-06-11 23:56 | REP ---
RIGHT FOREARM, TWO VIEWS: Two views right forearm performed and compared to prior exam on the same day. The comminuted intra-articular fracture of the distal radius is again noted with improved residual dorsal angulation. There are again fractures of the mid third and distal third of ulna. There is mild lateral angulation of the mid ulnar fracture. Electronically Signed by Ian Clifford MD 06/12/2019 04:55 P
--- NOTE | 2019-06-12 | REP ---
C-ARM VIEWS RIGHT WRIST: Multiple C-arm views right wrist are performed during reduction of fractures of the distal radius and ulna. Comminuted intra-articular fracture of the distal radius is noted with improved but persistent dorsal angulation. Fractures of the mid third and distal third of the ulna are again noted. There is mild angulation of the fracture of the mid shaft of the ulna. 36.4 seconds fluoroscopy time utilized. Electronically Signed by Ian Clifford MD 06/12/2019 04:55 P
== END 2019-06-11 19:29 | disposition short-term general hospital (02) ==
LOC: M ED 16:54
DX: S06.6X0A Traumatic subarachnoid hemorrhage without loss of consciousness, initial encounter (principal); S52.571A Other intraarticular fracture of lower end of right radius, initial encounter for closed fracture; S52.254A Nondisplaced comminuted fracture of shaft of ulna, right arm, initial encounter for closed fracture; S52.691A Other fracture of lower end of right ulna, initial encounter for closed fracture; S01.111A Laceration without foreign body of right eyelid and periocular area, initial encounter; S01.311A Laceration without foreign body of right ear, initial encounter; S63.285A Dislocation of proximal interphalangeal joint of left ring finger, initial encounter; W10.8XXA Fall (on) (from) other stairs and steps, initial encounter; Y92.098 Other place in other non-institutional residence as the place of occurrence of the external cause; Z85.46 Personal history of malignant neoplasm of prostate; J30.1 Allergic rhinitis due to pollen; Z79.899 Other long term (current) drug therapy; Z23 Encounter for immunization
CPT/HCPCS: 12011; 25605; 26770; 70450; 70486; 71046; 72125; 73090; 73100; 73110; 73130; 80047; 80076; 82150; 82550; 82553; 83690; 84484; 85025; 85610; 85730; 86850; 86900; 86901; 90471; 90715; 93005; 93041; 94760; 96374; 96376; 99285; G0480; J2270

== ENCOUNTER → 2019-10-27 | Outpatient (CLI) | payer MEDICARE, BC, OTHER | LOC: M LABSMTC 08:17 | PROVIDERS: ATTEND Anesthesiology | DX: Z01.812 Encounter for preprocedural laboratory examination (principal); Z20.828 Contact with and (suspected) exposure to other viral communicable diseases | CPT/HCPCS: C9803; U0003 ==

== ENCOUNTER 2019-11-01 09:01 | Day surgery (SDC) | payer MEDICARE, BC, OTHER ==
[~2019-11-01] VITALS: Ht 175.3 cm; Wt 83.9 kg
[~2019-11-01 09:01] MED LIST changes: +NS 1,000 ML IV ONE
[2019-11-01] MEDS ORDERED: propofoL 500 MG/50 ML VIAL As Ordered ONE ×2 (09:51→11:56)
[2019-11-01] MEDS ORDERED: fentaNYL 100 MCG/2 ML INJECTION (J3010) As Ordered ONE (09:51)
[2019-11-01] MEDS ORDERED: LIDOCAINE 2% 100MG/5ML SDV (FOR ANES.) As Ordered ONE (09:51)
--- NOTE | 2019-11-01 10:11 | ROOR ---
Patient Name: Gaurang Rangel Procedure Date: 11/01/2019 9:49 AM Date of : 1950 Age: 69 Room: [facility] Gender: Male Note Status: Finalized Procedure: Upper GI endoscopy Indications: Follow-up of esophageal reflux Providers: Yon Covarrubias Jr, MD Referring MD: ERMA HERRERA MD Requesting Provider: Medicines: Propofol per Anesthesia Complications: No immediate complications. Procedure: Pre-Anesthesia Assessment: - Prior to the procedure, a History and Physical was performed, and patient medications and allergies were reviewed. The patient is competent. The risks and benefits of the procedure and the sedation options and risks were discussed with the patient. All questions were answered and informed consent was obtained. Patient identification and proposed procedure were verified by the physician and the nurse in the pre-procedure area and in the procedure room. Mental Status Examination: alert and oriented. Airway Examination: normal oropharyngeal airway and neck mobility. Respiratory Examination: clear to auscultation. CV Examination: normal. ASA Grade Assessment: II - A patient with mild systemic disease. After reviewing the risks and benefits, the patient was deemed in satisfactory condition to undergo the procedure. The anesthesia plan was to use moderate sedation / analgesia (conscious sedation). Immediately prior to administration of medications, the patient was re-assessed for adequacy to receive sedatives. The heart rate, respiratory rate, oxygen saturations, blood pressure, adequacy of pulmonary ventilation, and response to care were monitored throughout the procedure. The physical status of the patient was re-assessed after the procedure. The Endoscope was introduced through the mouth, and advanced to the second part of duodenum. The upper GI endoscopy was accomplished without difficulty. The patient tolerated the procedure well. Findings: The upper third of the esophagus, middle third of the esophagus and lower third of the esophagus were normal. There were esophageal mucosal changes suspicious for short-segment Sanders's esophagus present in the distal esophagus. The maximum longitudinal extent of these mucosal changes was 2 cm in length. Biopsies were taken with a cold forceps for histology. Evidence of a Nataliia fundoplication was found at the gastroesophageal junction. The wrap appeared intact. This was traversed. Localized moderate mucosal changes characterized by erythema, friability (with contact bleeding) and granularity were found at the gastroesophageal junction. Biopsies were taken with a cold forceps for histology. The gastric fundus, gastric body, gastric antrum and prepyloric region of the stomach were normal. The duodenal bulb, first portion of the duodenum and second portion of the duodenum were normal. Impression: - Normal upper third of esophagus, middle third of esophagus and lower third of esophagus. 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 Biopsied. - A Nataliia fundoplication was found. The wrap appears intact. - Erythematous, friable (with contact bleeding), granular mucosa in the esophagus. Biopsied. - Normal gastric fundus, gastric body, antrum and prepyloric region of the stomach. - Normal duodenal bulb, first portion of the duodenum and second portion of the duodenum. Recommendation: - Discharge patient to home (ambulatory). - Return to my office at appointment to be scheduled. Yon Covarrubias MD Yon Covarrubias Jr, MD 11/01/2019 10:10:33 AM Electronically signed by Yon Covarrubias Jr, MD Number of Addenda: 0 Note Initiated On: 11/01/2019 9:49 AM Estimated Blood Loss: Estimated blood loss: none.
--- NOTE | 2019-11-01 10:26 | ROOR ---
Patient Name: Gaurang Rangel Procedure Date: 11/01/2019 9:50 AM Date of : 1950 Age: 69 Room: [facility] Gender: Male Note Status: Finalized Procedure: Colonoscopy Indications: Rectal bleeding Providers: Yon Covarrubias Jr, MD Referring MD: ERMA HERRERA MD Requesting Provider: Medicines: Propofol per Anesthesia Complications: No immediate complications. Procedure: Pre-Anesthesia Assessment: - Prior to the procedure, a History and Physical was performed, and patient medications and allergies were reviewed. The patient is competent. The risks and benefits of the procedure and the sedation options and risks were discussed with the patient. All questions were answered and informed consent was obtained. Patient identification and proposed procedure were verified by the physician and the nurse in the pre-procedure area and in the procedure room. Mental Status Examination: alert and oriented. Airway Examination: normal oropharyngeal airway and neck mobility. Respiratory Examination: clear to auscultation. CV Examination: normal. ASA Grade Assessment: II - A patient with mild systemic disease. After reviewing the risks and benefits, the patient was deemed in satisfactory condition to undergo the procedure. The anesthesia plan was to use moderate sedation / analgesia (conscious sedation). Immediately prior to administration of medications, the patient was re-assessed for adequacy to receive sedatives. The heart rate, respiratory rate, oxygen saturations, blood pressure, adequacy of pulmonary ventilation, and response to care were monitored throughout the procedure. The physical status of the patient was re-assessed after the procedure. The Colonoscope was introduced through the anus and advanced to the cecum, identified by appendiceal orifice and ileocecal valve. The colonoscopy was performed without difficulty. The patient tolerated the procedure well. The quality of the bowel preparation was adequate. Findings: The recto-sigmoid colon, descending colon, transverse colon, ascending colon, cecum, appendiceal orifice and ileocecal valve appeared normal. Multiple small and large-mouthed diverticula were found in the sigmoid colon. Diffuse moderate inflammation characterized by congestion (edema), erythema and friability was found in the rectum. Biopsies were taken with a cold forceps for histology. Non-bleeding external and internal hemorrhoids were found during retroflexion and during endoscopy. The hemorrhoids were Grade II (internal hemorrhoids that prolapse but reduce spontaneously) and Grade III (internal hemorrhoids that prolapse but require manual reduction). Impression: - The recto-sigmoid colon, descending colon, transverse colon, ascending colon, cecum, appendiceal orifice and ileocecal valve are normal. - Diverticulosis in the sigmoid colon. 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 Biopsied. - Non-bleeding external and internal hemorrhoids. Recommendation: - Discharge patient to home (ambulatory). - Repeat colonoscopy date to be determined after pending pathology results are reviewed for surveillance based on pathology results. Yon Covarrubias MD Yon Covarrubias Jr, MD 11/01/2019 10:26:15 AM Electronically signed by Yon Covarrubias Jr, MD Number of Addenda: 0 Note Initiated On: 11/01/2019 9:50 AM Estimated Blood Loss: Estimated blood loss: none.
[2019-11-01 10:51] VITALS: BP 114/70
== END 2019-11-01 10:53 | disposition home or self-care (01) ==
LOC: M OPP 09:01
PROVIDERS: ATTEND Surgery
DX: K62.7 Radiation proctitis (principal); K64.2 Third degree hemorrhoids; K62.5 Hemorrhage of anus and rectum; K57.30 Diverticulosis of large intestine without perforation or abscess without bleeding; K22.8 Other specified diseases of esophagus; K21.9 Gastro-esophageal reflux disease without esophagitis; Z98.890 Other specified postprocedural states; Z85.41 Personal history of malignant neoplasm of cervix uteri; Z92.3 Personal history of irradiation
CPT/HCPCS: 43239; 45380; 88305; J3010

== ENCOUNTER → 2019-11-28 | Outpatient (CLI) | payer MEDICARE, BC, OTHER ==
[~2019-11-28] MED LIST changes: -NS 1,000 ML IV ONE
== END ==
LOC: M WUC 09:18
PROVIDERS: ATTEND Urology
DX: C61 Malignant neoplasm of prostate (principal)

== ENCOUNTER → 2020-02-07 | Outpatient (CLI) | payer MEDICARE, OTHER, BC ==
[2020-02-07 12:01] LABS: ALBUMIN 3.8 GM/DL (3.2-5.2); ALT/SGPT 25 U/L (12-78); BILIRUBIN,TOTAL 3.4 MG/DL (0.2-1.0); BLOOD UREA NITROGEN 17 MG/DL (7-18); CALCIUM LEVEL 8.6 MG/DL (8.8-10.2); CARBON DIOXIDE LEVEL 28 MEQ/L (21-32); CHLORIDE LEVEL 105 MEQ/L (98-107); CHOLESTEROL LEVEL 182 MG/DL (<200); CHOLESTEROL RISK RATIO 3.956 (<5); CREATININE FOR GFR 0.86 MG/DL (0.70-1.30); GLOMERULAR FILTRATION RATE > 60.0 (>49); GLUCOSE, FASTING 94 MG/DL (70-100); HDL CHOLESTEROL 46 MG/DL (>40); LDL CHOLESTEROL 111 MG/DL (<100); NON-HDL-C 136 MG/DL; POTASSIUM SERUM 4.1 MEQ/L (3.5-5.1); SODIUM LEVEL 140 MEQ/L (136-145); TOTAL PROTEIN 6.7 GM/DL (6.4-8.2); TRIGLYCERIDES LEVEL 126 MG/DL (<150)
== END ==
LOC: M WUC 08:09
PROVIDERS: ATTEND Internal Medicine
DX: Z00.00 Encounter for general adult medical examination without abnormal findings (principal)

== ENCOUNTER → 2020-03-11 | Outpatient (CLI) | payer MEDICARE, OTHER, BC | LOC: M WUC 08:28 | PROVIDERS: ATTEND Urology | DX: C61 Malignant neoplasm of prostate (principal) ==

== ENCOUNTER → 2020-05-27 | Outpatient (CLI) | payer MEDICARE, OTHER, BC | LOC: M WUC 09:23 | PROVIDERS: ATTEND Urology | DX: C61 Malignant neoplasm of prostate (principal) ==

== ENCOUNTER 2020-06-22 08:36 | Emergency (ER) | payer MEDICARE, OTHER, BC ==
[~2020-06-22] VITALS: Ht 175.3 cm; Wt 86.4 kg
[2020-06-22] MEDS ORDERED: PANT40TA29 (08:44)
--- NOTE | 2020-06-22 10:19 | REP ---
INDICATION: R hip pain Nontraumatic hip pain. COMPARISON: None. TECHNIQUE: Frontal view of the pelvis with neutral and frog lateral views of the right hip. FINDINGS: Generalized age-related changes are appreciated. The bilateral hip joints are symmetric and demonstrate increased sclerosis along the acetabular roof with mild joint space narrowing. No acute fracture or dislocation. IMPRESSION: Generalized age-related changes to the pelvis and hips. <Electronically signed by Ed Gibson > 06/22/20 [id number]
[2020-06-22 11:11] LABS: BASO # 0.1 10^3/uL (0.0-0.2); BASO % 0.6 % (0.0-1.0); EOS # 0.1 10^3/uL (0.0-0.5); EOS % 1.4 % (0.0-3.0); HEMATOCRIT 44.1 % (42.0-52.0); HEMOGLOBIN 15.3 g/dl (13.5-17.5); LYMPH % 12.8 % (24.0-44.0); MEAN CORPUSCULAR HEMOGLOBIN 29.5 pg (27.0-33.0); MEAN CORPUSCULAR HGB CONC 34.7 g/dl (32.0-36.5); MEAN CORPUSCULAR VOLUME 85.1 fl (80.0-96.0); MONO # 0.6 10^3/uL (0.0-0.8); MONO % 8.1 % (2.0-8.0); NEUTROPHILS % 75.2 % (36.0-66.0); PLATELET COUNT, AUTOMATED 208 10^3/uL (150-450); RED BLOOD COUNT 5.18 10^6/uL (4.30-6.10); WHITE BLOOD COUNT 7.9 10^3/uL (4.0-10.0)
[2020-06-22 11:46] LABS: BLOOD UREA NITROGEN 19 MG/DL (7-18); CALCIUM LEVEL 9.4 MG/DL (8.8-10.2); CARBON DIOXIDE LEVEL 29 MEQ/L (21-32); CHLORIDE LEVEL 105 MEQ/L (98-107); CREATININE FOR GFR 0.89 MG/DL (0.70-1.30); GLOMERULAR FILTRATION RATE > 60.0 (>49); GLUCOSE, FASTING 101 MG/DL (70-100); POTASSIUM SERUM 4.1 MEQ/L (3.5-5.1); SODIUM LEVEL 139 MEQ/L (136-145)
--- NOTE | 2020-06-22 12:56 | REPVR ---
PROCEDURE INFORMATION: Exam: MR Right Lower Extremity Joint Without Contrast; Hip Exam date and time: 06/22/2020 11:47 AM Age: 69 years old Clinical indication: Pain and condition or disease; Other: Cancer; Right; Patient HX: HX prostate CA, RT hip pain in jt space only, unbalanced gait, difficulty bearing weight since 06/21/20, nki; Additional info: R hip pain, R/O FX, h/o prostate CA TECHNIQUE: Imaging protocol: MR of the Right lower extremity joint without contrast. Exam focused on the hip. COMPARISON: CR Hip,AP,LAT to include Pelvis 06/22/2020 9:59 AM FINDINGS: Bones and cartilage: The contralateral hip and portions of the remaining pelvis are included on some sequences. The hip joints are normally aligned. The femoral head articular contours are maintained. There is no subcortical marrow signal change in the femoral heads to suggest avascular necrosis. No fracture of the visualized skeleton is identified. The right hip joint demonstrates mild chondromalacia and very mild periarticular osteophyte formation, as does the contralateral hip joint. Mild marrow edema about the partially included sacroiliac joints is likely degenerative, with very mild periarticular osteophyte formation also seen here. There is no evidence for fracture of the visualized pelvis. Lower lumbar spondylosis is partially visualized. Joint spaces: Hip joint fluid is within physiologic limits. Labrum: There is mild fraying along the anterior superior aspect of the right acetabular labrum, likely degenerative. Bursae: Mild edema is present in the soft tissues along the bilateral trochanteric tendon insertions, suggesting trochanteric bursitis. TENDONS: Tendons of iliopsoas group: Unremarkable. No evidence of tear. Tendons of medial compartment of thigh: Unremarkable. No evidence of tear. Tendons of lateral rotators of hip: Unremarkable. No evidence of tear. Tendons of gluteal group: Unremarkable. No evidence of tear. Tendons of posterior compartment of thigh: There is mild bilateral hamstrings tendinopathy. Muscles: Moderate muscular edema involves the bilateral pectineus and obturator internus and externus muscles. Soft tissues: Unremarkable. Bowel: There appears to be wall thickening of the rectum. Other findings: There appears to have been prostatectomy. IMPRESSION: 1. No evidence for acute fracture. 2. Degenerative changes as described. 3. Moderate muscular edema involving the bilateral pectineus and obturator internus and externus muscles. This is of uncertain significance, possibly relating to strain, although the bilateral appearance is unusual. May consider reactive changes to radiation if this has been performed (there does appear to have been prostatectomy), or infection. May consider CT for further characterization, particularly if there is any clinical concern for infection. 4. Apparent wall thickening of the rectum, suggesting prostatitis which could also relate to radiation change or infection/inflammation. 5. Mild bilateral hamstrings tendinopathy. 6. Mild bilateral trochanteric bursitis. Electronically signed by: Gaurang Suero On 06/22/2020 12:56:41 PM
[2020-06-22 13:57] VITALS: BP 137/79
--- NOTE | 2020-06-23 20:07 | ED PDOC ---
Post-Departure Follow-Up mri right hip faxed to dr campa for fu Ion Gleason MD June 23, 2020 20:07
== END 2020-06-22 14:01 | disposition home or self-care (01) ==
LOC: M ED 08:36
DX: M16.11 Unilateral primary osteoarthritis, right hip (principal); S76.011A Strain of muscle, fascia and tendon of right hip, initial encounter; X58.XXXA Exposure to other specified factors, initial encounter; Y92.89 Other specified places as the place of occurrence of the external cause; M65.251 Calcific tendinitis, right thigh; K62.89 Other specified diseases of anus and rectum

== ENCOUNTER → 2020-09-18 | Outpatient (CLI) | payer MEDICARE, OTHER, BC ==
[~2020-09-18] MED LIST changes: +PANT40TA29
== END ==
LOC: M WUC 08:08
PROVIDERS: ATTEND Urology
DX: C61 Malignant neoplasm of prostate (principal)

== ENCOUNTER → 2020-12-08 | Outpatient (CLI) | payer MEDICARE, OTHER, BC | LOC: M WUC 08:22 | PROVIDERS: ATTEND Urology | DX: C61 Malignant neoplasm of prostate (principal) ==

== ENCOUNTER → 2021-02-16 | Outpatient (CLI) | payer MEDICARE, OTHER ==
[2021-02-16 12:08] LABS: ALBUMIN 4.1 GM/DL (3.2-5.2); ALT/SGPT 26 U/L (12-78); BILIRUBIN,TOTAL 2.6 MG/DL (0.2-1.0); BLOOD UREA NITROGEN 20 MG/DL (7-18); CARBON DIOXIDE LEVEL 29 MEQ/L (21-32); CHLORIDE LEVEL 106 MEQ/L (98-107); CHOLESTEROL LEVEL 212 MG/DL (<200); CHOLESTEROL RISK RATIO 4.076 (<5); CREATININE FOR GFR 0.92 MG/DL (0.70-1.30); GLOMERULAR FILTRATION RATE > 60.0 (>49); GLUCOSE, FASTING 95 MG/DL (70-100); HDL CHOLESTEROL 52 MG/DL (>40); LDL CHOLESTEROL 130 MG/DL (<100); NON-HDL-C 160 MG/DL; POTASSIUM SERUM 4.2 MEQ/L (3.5-5.1); SODIUM LEVEL 139 MEQ/L (136-145); TOTAL PROTEIN 7.2 GM/DL (6.4-8.2); TRIGLYCERIDES LEVEL 148 MG/DL (<150)
== END ==
LOC: M WUC 08:36
PROVIDERS: ATTEND Internal Medicine
DX: Z00.00 Encounter for general adult medical examination without abnormal findings (principal); Z79.899 Other long term (current) drug therapy

== ENCOUNTER → 2021-06-24 | Outpatient (CLI) | payer MEDICARE, OTHER | LOC: M WUC 08:37 | PROVIDERS: ATTEND Urology | DX: C61 Malignant neoplasm of prostate (principal) ==

== ENCOUNTER 2021-07-23 20:32 | Emergency (ER) | payer MEDICARE, OTHER ==
[~2021-07-23] VITALS: Ht 175.3 cm; Wt 91.4 kg
[2021-07-23 20:32] VITALS: BP 172/81
[2021-07-23] MEDS ORDERED: LIDOCAINE 1% MDV 20ML VIAL SC ONE (23:30)
[2021-07-23] MEDS ORDERED: CEPHALEXIN 500 MG CAP PO ONE (23:30)
[2021-07-24] MEDS ORDERED: CEPH500C PO (00:08)
== END 2021-07-24 00:36 | disposition home or self-care (01) ==
LOC: M ED 20:32
DX: S91.312A Laceration without foreign body, left foot, initial encounter (principal); W22.8XXA Striking against or struck by other objects, initial encounter; Y92.009 Unspecified place in unspecified non-institutional (private) residence as the place of occurrence of the external cause; Y93.9 Activity, unspecified; Y99.9 Unspecified external cause status; K21.9 Gastro-esophageal reflux disease without esophagitis; C61 Malignant neoplasm of prostate; Z79.899 Other long term (current) drug therapy

== ENCOUNTER → 2021-12-09 | Outpatient (CLI) | payer MEDICARE, BC, OTHER ==
[~2021-12-09] MED LIST changes: +CEPH500C PO
[2021-12-09 11:24] LABS: BASO # 0.1 10^3/uL (0.0-0.2); BASO % 0.9 % (0.0-1.0); EOS # 0.1 10^3/uL (0.0-0.5); EOS % 2.1 % (0.0-3.0); HEMATOCRIT 41.9 % (42.0-52.0); HEMOGLOBIN 14.5 g/dl (13.5-17.5); LYMPH # 1.1 10^3/uL (1.5-5.0); LYMPH % 18.7 % (24.0-44.0); MEAN CORPUSCULAR HEMOGLOBIN 29.7 pg (27.0-33.0); MEAN CORPUSCULAR HGB CONC 34.6 g/dl (32.0-36.5); MEAN CORPUSCULAR VOLUME 85.9 fl (80.0-96.0); MONO # 0.6 10^3/uL (0.0-0.8); MONO % 9.8 % (2.0-8.0); NEUTROPHILS # 3.7 10^3/uL (1.5-8.5); NEUTROPHILS % 65.8 % (36.0-66.0); PLATELET COUNT, AUTOMATED 216 10^3/uL (150-450); RED BLOOD COUNT 4.88 10^6/uL (4.30-6.10); WHITE BLOOD COUNT 5.6 10^3/uL (4.0-10.0)
[2021-12-09 11:43] LABS: ERYTHROCYTE SEDIMENTATION RATE 8 mm/hr (0-20)
[2021-12-09 12:10] LABS: ALBUMIN 3.9 GM/DL (3.2-5.2); ALT/SGPT 29 U/L (12-78); BILIRUBIN,TOTAL 3.3 MG/DL (0.2-1.0); BLOOD UREA NITROGEN 18 MG/DL (7-18); CALCIUM LEVEL 8.7 MG/DL (8.8-10.2); CARBON DIOXIDE LEVEL 29 MEQ/L (21-32); CHLORIDE LEVEL 103 MEQ/L (98-107); CREATININE FOR GFR 0.98 MG/DL (0.70-1.30); GLOMERULAR FILTRATION RATE > 60.0 (>42); GLUCOSE, FASTING 92 MG/DL (70-100); POTASSIUM SERUM 4.2 MEQ/L (3.5-5.1); RHEUMATOID FACTOR QUANT 20.6 IU/ML (<15.0); SODIUM LEVEL 136 MEQ/L (136-145); TOTAL PROTEIN 6.8 GM/DL (6.4-8.2)
[2021-12-09 12:41] LABS: VITAMIN B12 LEVEL 520 PG/ML (247-911)
== END ==
LOC: M WUC 08:03
PROVIDERS: ATTEND Psychiatry & Neurology Neurology
DX: R51.9 Headache, unspecified (principal)

== ENCOUNTER → 2021-12-29 | Outpatient (CLI) | payer MEDICARE, BC, OTHER | LOC: M WUC 09:08 | PROVIDERS: ATTEND Urology | DX: C61 Malignant neoplasm of prostate (principal) ==

== ENCOUNTER → 2022-02-05 | Outpatient (CLI) | payer MEDICARE, BC, OTHER ==
[2022-02-05 12:31] LABS: ALBUMIN 3.8 G/DL (3.2-5.2); ALKALINE PHOSPHATASE 88 U/L (46-116); ALT/SGPT 19 U/L (7.0-40); AST/SGOT 23 U/L (<34); BILIRUBIN,TOTAL 4.2 MG/DL (0.3-1.2); BLOOD UREA NITROGEN 25 MG/DL (9-23); CALCIUM LEVEL 9.4 MG/DL (8.3-10.6); CARBON DIOXIDE LEVEL 24 MMOL/L (20-31); CHLORIDE LEVEL 103 MMOL/L (98-107); CHOLESTEROL LEVEL 197 MG/DL (<200); CHOLESTEROL RISK RATIO 4.46 (<5); CREATININE FOR GFR 0.98 MG/DL (0.70-1.30); GLOMERULAR FILTRATION RATE > 60.0 (>42); GLUCOSE, FASTING 92 MG/DL (74-106); HDL CHOLESTEROL 44.1 MG/DL (>40); LDL CHOLESTEROL 129.5 MG/DL (<100); NON-HDL-C 153 MG/DL; POTASSIUM SERUM 4.6 MMOL/L (3.5-5.1); SODIUM LEVEL 137 MMOL/L (136-145); TOTAL PROTEIN 6.8 G/DL (5.7-8.2); TRIGLYCERIDES LEVEL 117 MG/DL (<150)
== END ==
LOC: M WUC 09:26
PROVIDERS: ATTEND Internal Medicine
DX: E78.5 Hyperlipidemia, unspecified (principal); K22.70 Barrett's esophagus without dysplasia

== ENCOUNTER → 2022-03-18 | Outpatient (CLI) | payer MEDICARE, BC, OTHER ==
[2022-03-18 17:05] LABS: BLOOD UREA NITROGEN 19 MG/DL (9-23); CREATININE FOR GFR 1.11 MG/DL (0.70-1.30); GLOMERULAR FILTRATION RATE > 60.0 (>42)
== END ==
LOC: M WUC 12:54
PROVIDERS: ATTEND Physician Assistant
DX: M25.422 Effusion, left elbow (principal); M25.522 Pain in left elbow

== ENCOUNTER → 2022-07-05 | Outpatient (CLI) | payer MEDICARE, BC, OTHER | LOC: M WUC 08:16 | PROVIDERS: ATTEND Urology | DX: C61 Malignant neoplasm of prostate (principal) ==

== ENCOUNTER → 2022-12-22 | Outpatient (CLI) | payer MEDICARE, BC, OTHER | LOC: M WUC 08:02 | PROVIDERS: ATTEND Urology | DX: C61 Malignant neoplasm of prostate (principal) ==

== ENCOUNTER → 2023-07-11 | Outpatient (CLI) | payer MEDICARE, BC, OTHER | LOC: M WUC 08:08 | PROVIDERS: ATTEND Urology | DX: C61 Malignant neoplasm of prostate (principal) ==

== ENCOUNTER → 2024-01-25 | Outpatient (CLI) | payer MEDICARE, BC, OTHER | LOC: M WUC 10:12 | PROVIDERS: ATTEND Urology | DX: C61 Malignant neoplasm of prostate (principal) ==

== ENCOUNTER → 2024-02-28 | Outpatient (CLI) | payer MEDICARE, BC ==
[2024-02-28 07:54] LABS: ALBUMIN 3.8 G/DL (3.2-5.2); ALKALINE PHOSPHATASE 100 U/L (40-129); ALT/SGPT 25 U/L (7.0-40); AST/SGOT 18 U/L (<34); BILIRUBIN,TOTAL 3.2 MG/DL (0.3-1.2); BLOOD UREA NITROGEN 20 MG/DL (9-23); CALCIUM LEVEL 9.5 MG/DL (8.3-10.6); CARBON DIOXIDE LEVEL 30 MMOL/L (20-31); CHLORIDE LEVEL 102 MMOL/L (98-107); CHOLESTEROL LEVEL 204 MG/DL (<200); CREATININE FOR GFR 0.89 MG/DL (0.70-1.30); GLOMERULAR FILTRATION RATE > 60.0 (>42); GLUCOSE, FASTING 104 MG/DL (74-106); HDL CHOLESTEROL 41.6 MG/DL (>40); LDL CHOLESTEROL 133.6 MG/DL (<100); NON-HDL-C 162.4 MG/DL; POTASSIUM SERUM 4.5 MMOL/L (3.5-5.1); SODIUM LEVEL 140 MMOL/L (136-145); TOTAL PROTEIN 6.9 G/DL (5.7-8.2); TRIGLYCERIDES LEVEL 144 MG/DL (<150)
== END ==
LOC: M LAB 07:09
PROVIDERS: ATTEND Internal Medicine
DX: E78.5 Hyperlipidemia, unspecified (principal); M25.59 Pain in other specified joint

== ENCOUNTER → 2024-04-11 | Outpatient (CLI) | payer MEDICARE, BC ==
[~2024-04-11] MED LIST changes: +E-Z-GAS II EFFERVESCENT PACKET (SODIUM BICARB./CITRIC ACID/SIMETHICONE) As Ordered ONE; +E-Z-HD 98% w/w 340GM SUSP BTL As Ordered ONE; +E-Z-PAQUE 96% w/w SUSP 176GM BTL As Ordered ONE
== END ==
LOC: M RAD 08:16
PROVIDERS: ATTEND Surgery
DX: R13.10 Dysphagia, unspecified (principal)

== ENCOUNTER 2024-05-10 06:25 | Day surgery (SDC) | payer MEDICARE, BC ==
[~2024-05-10] VITALS: Ht 175.3 cm; Wt 89.7 kg
[~2024-05-10 06:25] MED LIST changes: -E-Z-GAS II EFFERVESCENT PACKET (SODIUM BICARB./CITRIC ACID/SIMETHICONE) As Ordered ONE; -E-Z-HD 98% w/w 340GM SUSP BTL As Ordered ONE; -E-Z-PAQUE 96% w/w SUSP 176GM BTL As Ordered ONE; +ECOT81TA5 PO; +FAMO40TA3 PO; -PANT40TA29; +PANT40TA29 PO
[2024-05-10] MEDS ORDERED: SIMETHICONE 40MG/0.6ML DROPS 30ML As Ordered ONE (06:44)
[2024-05-10] MEDS ORDERED: propofoL 200 MG/20 ML VIAL As Ordered ONE (06:59)
[2024-05-10] MEDS ORDERED: fentaNYL 100 MCG/2 ML INJECTION As Ordered ONE (07:13)
[2024-05-10] MEDS ORDERED: LIDOCAINE 2% 100MG/5ML SDV (FOR ANES.) As Ordered ONE (07:13)
[2024-05-10 07:43] VITALS: TEMP 98.3
[2024-05-10 07:58] VITALS: BP 132/68; O2SAT 94
== END 2024-05-10 08:02 | disposition home or self-care (01) ==
LOC: M OPP 06:25
PROVIDERS: ATTEND Surgery
DX: R13.10 Dysphagia, unspecified (principal); Z98.890 Other specified postprocedural states; Z91.048 Other nonmedicinal substance allergy status; Z79.82 Long term (current) use of aspirin; Z79.899 Other long term (current) drug therapy
CPT/HCPCS: 43235; J3010

== ENCOUNTER → 2025-01-29 | Outpatient (CLI) | payer MEDICARE, BC | LOC: M WUC 08:26 | PROVIDERS: ATTEND Urology | DX: C61 Malignant neoplasm of prostate (principal) ==